=== PATIENT | female | born 1995 | race Caucasian/White ===

== ENCOUNTER → 2018-04-11 13:50 | Outpatient (CLI) | payer OTHER, SELFPAY ==
[2018-04-11 16:13] LABS: Absolute Lymphocyte Count 1.48 X10^3/ul (0.83-4.51); Absolute Neutrophil Count 2.7 X10^3/uL (2.0-7.7); Basophil# 0.03 X10^3/uL; Basophil% 0.6 % (0-1); Eosinophil# 0.35 X10^3/uL; Eosinophils% 6.8 % (0-5); Hematocrit 39.9 % (37-47); Hemoglobin 13.6 g/dl (12.0-15.0); Lymphocyte # 1.48 X10^3/ul (4.0); Lymphocyte % 28.7 % (19-41); Mean Corp Hgb Conc 34.1 g/gl (32-36); Mean Corpuscular Hgb 31.3 pg (27.0-32.0); Mean Corpuscular Volume 91.9 fL (81-99); Mean Platelet Vol. 11.9 fl (6.2-12.0); Monocyte# 0.57 X10^3/uL; Neutrophil # 2.72 X10^3/uL (2.7-7.7); Neutrophil % 52.7 % (47-70); Platelet Count 251 K/mm3 (150-450); RBC Distribution Width CV 12.6 % (11.6-14.6); RBC Distribution Width SD 40.9 fl (35.1-43.9); Red Blood Count 4.34 M/mm3 (4.2-5.4); White Blood Count 5.2 K/mm3 (4.4-11.0)
[2018-04-11 16:23] LABS: POSITIVE COUNT NO; POSITIVE DIFFERENTIAL NO; POSITIVE MORPHOLOGY NO
[2018-04-11 16:30] LABS: ALB/GLOB Ratio 1.2 RATIO (0.9-2.4); AST(SGOT) 73 U/L (15-37); Alanine Aminotransfer ALT/SGPT 133 U/L (13-56); Albumin, Serum 3.8 g/dL (3.2-5.0); Alkaline Phosphatase 79 U/L (45-117); Anion Gap 11 (5-15); BUN 12 mg/dL (7-18); BUN/Creat Ratio 15.2 RATIO (10-20); Calcium,Total 8.4 mg/dL (8.5-10.1); Chloride 103 mmol/L (98-107); Creatinine, Serum 0.79 mg/dL (0.55-1.02); EST Glomerular Filtration Rate 96 mL/min (>60); Est Glom Filt Rate - Afr Amer 116 mL/min (>60); Globulin 3.2 g/dL (2.2-4.2); Glucose 70 mg/dL (74-106); Potassium 3.8 mmol/L (3.5-5.1); Sodium Level 141 mmol/L (136-145)
== END ==
PROVIDERS: Visit Provider Family Medicine
DX: Z01.818 Encounter for other preprocedural examination (principal)
CPT/HCPCS: 36415; 80053; 85025

== ENCOUNTER 2018-04-29 09:58 | Day surgery (SDC) | payer OTHER, SELFPAY ==
[2018-04-29 10:19] LABS: Internal QC Validated? YES +Cl - CLEAR BKGD
[2018-04-29 10:22] LABS: Pregnancy, Urine Negative Negative
[2018-04-29 10:26] VITALS: BP 95/50; PULSE 77; TEMP 37; O2SAT 100; BMI 20.3
--- NOTE | 2018-04-29 11:30 | BUN_PTH ---
PATIENT: JAYSON SARGENT LOC: [facility] [place] U#:[id number] AGE/SX: 22/F ROOM: RE04/29/[address]: Dr. Haider Charlton DPM : 1995 BED: DIS: 04/29/2018 SPEC #: [id number] RECD: 04/29/18 15:44 STATUS: MATEUSZ REJatinder #: [id number] GRAYSON: 04/29/18 11:[address]: Haider Charlton DEPT: SURGICAL PATHOLOGY RECD BY: Bo Le ENTERED: 05/02/18 08:45 SP TYPE: DENA MATTHEWS DR: Janet Ruiz, ENMANUEL Tissues: Bone of foot, NOS Procedures: Decalcification bone/plaque Surgery Specimen Level III HEADER OPERATION: First metatarsal cuneiform Lapidus bunionectomy, foot PRE-OP DIAGNOSIS: Hallus valgus TISSUE SUBMITTED: Bone from bunion MICROSCOPIC DIAGNOSIS Bone from bunion: A piece of bone with reactive changes, clinically dena. JOAN:shruthi 05/05/18 MICROSCOPIC DESCRIPTION Slides are reviewed. GROSS DESCRIPTION Received in fixative is one container labeled with the patient's name and designated bone from dena. The specimen consists of an irregular piece of bone measuring 2.5 x 1.5 x 0.2 cm. The entire specimen is submitted in one cassette after decalcification. / JOAN:shruthi 05/02/18 TC:5 CPT: 37624, 24978
--- NOTE | 2018-04-29 13:30 | RAD_ITS ---
STUDY: X-RAY - RIGHT FOOT CLINICAL: Female, 22 years old. Intraoperative films of medial surgical fusion.. TECHNIQUE: 3 C-arm view(s) of the foot. 1 minute 22 seconds fluoroscopy time. COMPARISON: None. FINDINGS: These limited field of view images show surgical ankylosis and fixation between the first metatarsal and the medial cuneiform. No gross acute constipation seen. Correlate with procedure note. Electronically Signed: Pablo Damon MD at 16:51 EST , Service support , RAD/Foot min 3 Views
[2018-04-29] MEDS: Bupivacaine 0.5% PF 10 ML VIAL (15:49)
--- NOTE | 2018-04-29 16:03 | RAD_ITS ---
STUDY: X-RAY - RIGHT FOOT CLINICAL: Female, 22 years old. Postop TECHNIQUE: 3 view(s) of the foot. COMPARISON: None. FINDINGS: Exam is limited by overlying splint. Postsurgical changes seen off the medial surgical ankylosis between first metatarsal and the medial cuneiform. Normal talus, calcaneus, and tarsal bones. Except along the medial aspect of the foot and postsurgical changes of the medial cuneiform and first metatarsal, otherwise normal visualized subtalar, talonavicular, calcaneocuboid, tarsal and tarsometatarsal articulations. Normal second-fifth metatarsi. Normal metatarsophalangeal joint of the great toe. Normal tibial and fibular sesamoid bones. Normal interphalangeal joint of the great toe. Normal phalanges of the great toe. Normal second through fifth metatarsophalangeal joints. Normal interphalangeal joints and phalanges of the lesser toes. The soft tissue structures are unremarkable. RAD/Foot min 3 Views IMPRESSION: Postsurgical changes seen off the medial surgical ankylosis between first metatarsal and the medial cuneiform. Electronically Signed: Pablo Damon MD at 16:48 EST , Service support ,
--- NOTE | 2018-04-29 16:05 | DCINST_ITS ---
Discharge Diet: Light diet - advance as tolerated Discharge Activity: May Not Drive Weight Bearing Status: No weight bearing - No weightbearing right foot Keep extremity elevated above heart level: Right Leg - Keep right foot elevated for at least 50 minutes of every hour Call your doctor if your incision/area has: Continuous Slow Oozing, Sudden Increased Bleeding, Foul Smelling Discharge Call your doctor if you observe: Fever of 101 or Higher, Shortness of breath, Chest pain, Increased palpitations (irregular heartbeat), Calf discomfort, Uncontrolled pain Cleanse incision/area with: Do not get Incision Wet, Keep Dressing Clean & Dry Allergies/Adverse Reactions: Allergies Penicillins Allergy (Verified 04/22/18 09:30) Unknown Medications to take at Discharge Cholecalciferol (Vitamin D3) [Vitamin D3] 5,000 unit PO DAILY 04/22/18 L.acidoph,Paracasei, B.lactis [Probiotic] 1 each PO DAILY 04/22/18 Multivitamin [Multiple Vitamins] 1 each PO DAILY 04/22/18 Oxycodone HCl/Acetaminophen [Percocet 5/325] 1 - 2 tab PO Q6H PRN PRN 3 Days #30 tab 04/29/18 The following prescriptions were given: Oxycodone HCl/Acetaminophen [Percocet 5/325] 1 - 2 tab PO Q6H PRN PRN 3 Days #30 tab PRN Reason: Pain Primary Care Physician: Janet Ruiz NP-C [Primary Care Provider] - Test Results: Test results from this visit will be discussed in further detail at your follow- up appointment, if applicable. Please Follow Up With: Haider Charlton DPM When: within 1 week, sooner if needed
[2018-04-29 16:07] VITALS: BP 101/68; BP 95/50; PULSE 67; RESP 16; TEMP 36.7; O2SAT 100
--- NOTE | 2018-04-29 16:07 | OP.PCM_ITS ---
Report of Operation Date of Procedure: 04/29/18 Pre-Operative Diagnosis: Hallux valgus, right foot Post-Operative Diagnosis: Same Surgery/Procedure Performed:: 1st metatarsal cuneiform lapidus arthrodesis bunionectomy ultrasound technologist sonographer: yes - Dr. Menezes ultrasound technologist sonographer: yes - Dr. Amaral Type of Anesthesia:: General Specimen's removed: Right foot bunion (from 1st metatarsal head) sent to pathology Estimated Blood Loss (mL): 10mL Description of Procedure: Indications: This is a 22 year old female with history of significant chronic right hallux valgus bunion pain despite conservative care. She is very active, and foot has been very painful for many years, only getting worse. Given the continued symptoms despite nonsurgical management she elected to under go surgical intervention - 1st metatarsal cuneiform lapidus arthrodesis bunionectomy. This was discussed with her in great detail, reviewed the procedures, as well as the rationale of the procedures with her in great detail. We discussed and reviewed the possible benefits vs risks/potential complications. The estimated healing/recovery time and protocol were reviewed with her in detail. Reviewed the goals and the expectations. She expressed understanding and agreement and elected to proceed forward with surgical intervention as noted above. The consent forms were reviewed with her and she freely signed them. All of her questions were answered. No guarantees were given or implied. She was cleared from medical standpoint to proceed with surgery. Operative Procedure: The patient was brought back into the operating room and was placed on the operating table in the supine position. Patient was carefully secured to the operating room table with a safety belt around her waist. A time out was performed and the patient was properly identified and the surgical plan was confirmed. The patient received IV antibiotic prophylaxis. The patient received general anesthesia per the anesthesiologist. A well padded pneumatic tourniquet was applied around her right ankle thigh. The right foot was scrubbed, prepped, and draped in the usual aseptic fashion. Also of note the patient received a right lower extremity popliteal block per the anesthesia service in the pre operative holding area. Attention was directed to the right foot, there was noted to be hallux valgus bunion w/ instability of the 1st ray. The right foot was elevated for 3 minutes and the right ankle pneumatic tourniquet was inflated to 250mmHg. A linear longitudinal skin incision was medially along the medial 1st metatarsal cuneiform joint as well as overlying the 1st metatarsal phalangeal joint. This was done using a 15 blade. Careful dissection was completed down to the capsule of the 1st metatarsal cuneiform joint, and it was incised using a 15 blade and partially reflected exposing the joint surfaces. All cartilage from the joint surfaces (posterior aspect of the base of the 1st metatarsal and the anterior aspect of the medial cuneiform) were debrided away and was removed down to bleeding bone. This was done with a powered rasp as well as manually with a curette, being sure not to cause osteonecrosis. The site was flushed out with copious amounts of normal saline solution. The surfaces were fenestrated using a powered drill as well as with an osteotome to aid fusion. The 1st metatarsal head was reduced into normal position. The site was fixated use rigid open reduction internal fixation, using 1 Arthrex plantar plate, using a total of 4 locking screws and 1 nonlocking compression screws. The compression screw was placed across the fusion site. There was good compression and bone to bone contract with the prepped fusion site, in good alignment. The fusion site was r igid and very stable. This was checked and confirmed with intraoperative fluoroscopy. There was noted to be a residual medial eminence to the 1st metatarsal head. Careful dissection was completed down to the 1st metatarsal phalangeal joint capsule and it was incised, it was partially reflected. The medial eminence of noted to have scar tissue around it, and there was noted synovitis in the 1st me tatarsal phalangeal joint itself. The site was flushed out with copious amounts of normal saline solution, and the medial eminence was resected using a powered sagittal saw, the bone was sent to pathology. There was redundant capsule at the site was a medial capsulorraphy was completed, debulking the medial capsule and tightening it how it is suppose to be. This was done with 3-0 Vicryl. There was smooth gliding range of motion of the 1st metatarsal phalangeal joint. There was excellent alignment. The surgical site was flushed out with copious amounts of normal saline solution. Tissues were healthy and viable at this time. The subcutaneous tissue layers were reapproximated using 3-0 Vicryl and the skin was reapproximated using 4-0 Monocryl. 7 mL of 0.5% Bupivacaine plain was given as a lock block around the surgical site for further pain control. The pneumatic tourniquet was deflated at 90 minutes, there was immediate return of warmth and perfusion to the foot and to all toes on the foot with normal temperature gradient and CFT < 2 seconds to all toes once the tourniquet was deflated. A dressing was applied which consisted of betadine soaked adaptic, 4x4 gauze, kerlix, rashaad bandage, and a well padded below the knee posterior splint secured with rashaad bandages and with the heel offloaded. Of note, all vital structures including all vital neurovascular and tendon structures were properly identified, protected, and retracted as necessary throughout the above operative procedures. The patient tolerated the above operative procedures well at the anesthesia well with no complication. The patient was transported from the operating room to the recovery room with vital signs stable and in good condition. Post operative orders were placed. Post operative instructions were reviewed with her and her family who was with her. No weightbearing right foot foot, keep right foot elevated for at least 50 minutes of every hour, keep dressing and splint clean, dry and intact. Post operative xrays were obtained in the recovery room (DP, Oblique, and lateral foot) - there was again noted to be 1st metatarsal cuneiform arthrodesis bunionectomy with joint surfaces in good alignment and good bone to bone contract with intact hardware; no acute problems or complications seen. Patient was prescribed Percocet for pain control, and levofloxacin 500mg PO once a day for 3 days to help prevent infection. Patient to follow up with me in office within 1 week, sooner if needed. Grafts/Implants Used: 1 Arthrex plantar plate and scres - Complications None
[2018-04-29 16:15] VITALS: BP 95/50; BP 96/59; PULSE 62; RESP 16; O2SAT 100
[2018-04-29 16:30] VITALS: BP 100/71; BP 95/50; PULSE 56; RESP 16; O2SAT 100
[2018-04-29 16:40] VITALS: BP 100/57; BP 95/50; PULSE 49; RESP 16; TEMP 36.5; O2SAT 100
== END 2018-04-29 17:40 | disposition home or self-care (01) ==
LOC: SDC 10:01 → AC 10:02
PROVIDERS: Anesthesiology; Family Provider Registered Nurse; PCP Registered Nurse; Referring Provider Podiatrist; Visit Provider Podiatrist
PROC: (CPT 28292; principal; 2018-04-29 11:15)
DX: M20.11 Hallux valgus (acquired), right foot (principal); F41.9 Anxiety disorder, unspecified
CPT/HCPCS: 28297; 73630; 76000; 81025; 88304; 88311; C1713; J7120; J2405

== ENCOUNTER → 2018-07-21 14:04 | Outpatient (CLI) | payer OTHER, SELFPAY ==
[2018-07-27 12:23] LABS: HPV Reflexed? NOT INDICATED
== END ==
PROVIDERS: Visit Provider Obstetrics & Gynecology
DX: Z12.4 Encounter for screening for malignant neoplasm of cervix (principal)
CPT/HCPCS: 88175; G0145

== ENCOUNTER 2018-08-11 17:00 | Outpatient (RCR) | payer OTHER, SELFPAY ==
--- NOTE | 2018-07-13 15:36 | HP.PTEVAL_ITS ---
Patient's Visit Information JAYSON SARGENT is a 22 year old F referred to Physical Therapy by Haider Charlton DPM with a diagnosis of R foot bunionectomy and 1st ray arthrodesis. Date of Evaluation: 07/13/18 Physical Therapist: Jhonny Krause PT, ATC - Visit Plan Frequency: 2-3x /Week Duration: 4-6 Weeks Plan: wean out of boot. R foot and ankle stretching and strengthening, balance and proprio, bike, and HEP - Subjective Findings: DOS: 04/29/18. Pt reports she had a lot of pain prior to having this surgery. Pt had a bunionectomy and 1st metatarsal arthrodesis performed on her R foot. Pt reports she is feeling much better now since having the surgery. Pt notes she was in severe pain and had significant deformity prior to her surgery. 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 No tingling or numbness in R LE. No sleep difficulty at this time secondary to pain. Pt has been weaning out of boot for the past month, but developed a stress fracure on the 3rd metatarsal. Pt reports she has no pain while she is in the boot, but still has pain if she walks in her shoe. 0/10 pain at rest, 8/10 while walking in her shoe - Pain R foot Pain Intensity (Out of 10): 0 Pain Intensity Range: 8 - Objective Neuro: B LE sensation is WNL to light touch. B achilles reflex= 2/3. ROM: R ankle DF= 15, PF= 80, Inv= 53, Ever= 10: R ankle DF= 15, PF= 75, inv= 40, ever= 15. MMT: L ankle 5/5 throughout. R ankle 4+/5. Observation: Incisions healed well. No signs of infection. Gait: No sig deviations at this time - Goals Goal 1:: Decrease R foot pain x 50% to aid with walking Goal Time Frame: 4-6 Weeks Goal 2:: Increase R foot strength to 5/5 to aid with return to exercise Goal Time Frame: 4-6 Weeks Goal 3:: I with HEP Goal Time Frame: 4-6 Weeks - Rehabilitation Potential Physical Therapy Diagnosis: Pt has R foot pain, weakness, and limitations with gait secondary to R foot surgery Rehabilitation Potential: Good - Anticipated Interventions Patient/Client Instruction: Educate patient on: Condition, Plan of Care For the Purpose of:: To decrease pain, To increase ROM, To improve muscle performance and motor function Therapeutic Exercise to Include: Strength training, Endurance training, Balance training, Flexibilty training, Gait and locomotor training, Active ROM, Dynamic Lumbar Stabilization For the Purpose of:: To decrease pain, To increase ROM, To improve muscle performance and motor function Cryotherapy (ice pack, ice massage): Yes For the Purpose of:: To decrease pain Thank you for the opportunity to evaluate your patient. For Medicare and Medicare HMO plans, please review the plan of care and approve it. It will need to be FAXED BACK to us at [phone] for Medicare purposes. For Medicare only, by signing this I certify the plan of care. Please let me know if there are questions or concerns regarding this plan of care. Physician Signature: Date:
--- NOTE | 2018-08-11 17:36 | HP.PTDCSUM ---
HP - PT D/C Summary It has been my pleasure to treat JAYSON SARGENT under orders from Haider Charlton DPM, for the diagnosis of R foot bunionectomy and 1st ray arthrodesis for a total of 9 visit(s). Discharge Date: Please see the following information for a summary of their discharge status. - Subjective Subjective: No pain this date - Pain R foot Pain Intensity (Out of 10): 0 - Overall Improvement % Improvement: 75 - Objective Objective/Function: R ankle MMT: 5/5. 0/10 pain. I with HEP. Rx goals achieved - Goals Goal 1:: Decrease R foot pain x 50% to aid with walking Goal Progress: Goal Met Goal 2:: Increase R foot strength to 5/5 to aid with return to exercise Goal Progress: Goal Met Goal 3:: I with HEP Goal Progress: Goal Met - Plan Plan: discharge - D/C Information If there are questions or concerns regarding this patient's physical therapy, please feel free to call me at [phone]. Thank you for the referral of this patient. Sincerely, Jhonny Krause, PT, ATC
== END 2018-08-11 19:00 | disposition home or self-care (01) ==
LOC: PT 17:00
PROVIDERS: Family Provider Registered Nurse; PCP Registered Nurse; Referring Provider Podiatrist; Visit Provider Podiatrist
DX: Z98.890 Other specified postprocedural states (principal)
CPT/HCPCS: 97110; 97161; 97530

== ENCOUNTER → 2019-08-01 | Outpatient (CLI) | payer OTHER, SELFPAY | END | disposition home or self-care (01) | PROVIDERS: Visit Provider Obstetrics & Gynecology | DX: Z12.4 Encounter for screening for malignant neoplasm of cervix (principal) ==

== ENCOUNTER → 2024-05-22 | Outpatient (CLI) | payer OTHER, SELFPAY ==
[2024-05-22 07:46] LABS: Mean Corp Hgb Conc 33.3 g/dL (32-36); Mean Corpuscular Hgb 29.5 pg (27.0-32.0); Mean Corpuscular Volume 88.6 fL (81-99); Mean Platelet Vol. 11.7 fl (6.2-12.0); Platelet Count 256 K/mm3 (150-450); RBC Distribution Width CV 12.9 % (11.6-14.6); RBC Distribution Width SD 42.2 fl (35.1-43.9); Red Blood Count 4.74 M/mm3 (4.2-5.4); White Blood Count 4.6 K/mm3 (4.4-11.0)
[2024-05-22 07:53] LABS: Bedside Glucose 94 mg/dL (74-106)
[2024-05-22 08:11] LABS: T3 Total - Triiodothyronine 1.07 ng/mL (0.6-1.81)
[2024-05-22 08:11] LABS: Glucose 75GTT - Fasting 106 mg/dL (70-99)
[2024-05-22 08:13] LABS: Glucose 75GTT - 30 minutes 133 mg/dL (100-160)
[2024-05-22 08:15] LABS: ALB/GLOB Ratio 1.1 RATIO (0.9-2.4); AST(SGOT) 16 U/L (15-37); Alanine Aminotransfer ALT/SGPT 28 U/L (13-56); Albumin, Serum 3.9 g/dL (3.2-5.0); Alkaline Phosphatase 47 U/L (45-117); Anion Gap 5 (5-15); BUN 14 mg/dL (7-18); BUN/Creat Ratio 16.4 RATIO (10-20); Calcium,Total 8.5 mg/dL (8.5-10.1); Chloride 108 mmol/L (98-107); Creatinine, Serum 0.85 mg/dL (0.55-1.02); EST Glomerular Filtration Rate 84 mL/min (>60); Est Glom Filt Rate - Afr Amer 101 mL/min (>60); Free T3 3.1 pg/mL (2.18-3.98); Globulin 3.5 g/dL (2.2-4.2); Glucose 94 mg/dL (74-106); Potassium 3.9 mmol/L (3.5-5.1); Protein, Total 7.4 g/dL (6.4-8.2); Sodium Level 139 mmol/L (136-145); T4 Free Direct 0.92 ng/dL (0.76-1.46)
[2024-05-22 08:57] LABS: Glucose 75GTT - 60 minutes 89 mg/dL (100-160)
[2024-05-22 10:06] LABS: Glucose 75GTT - 120 minutes 90 mg/dL (70-140)
[2024-05-23 04:06] LABS: PROLACTIN 7.2 ng/mL (4.8-33.4)
[2024-05-23 15:07] LABS: PROLACTIN 14.2 ng/mL (4.8-33.4); Thyroglobulin Antibody < 1.0 IU/mL (0.0-0.9); Thyroid Peroxidase AB 13 IU/mL (0-34)
[2024-05-23 16:08] LABS: INSULIN 120 MIN 21.1 uIU/mL (0.0-145.4); INSULIN 30 MIN 45.2 uIU/mL (0.0-121.9); INSULIN 60 MIN 41.7 uIU/mL (0.0-163.5)
== END | disposition home or self-care (01) ==
PROVIDERS: PCP Registered Nurse; Referring Provider Obstetrics & Gynecology; Visit Provider Obstetrics & Gynecology
DX: Z13.1 Encounter for screening for diabetes mellitus (principal); Z13.21 Encounter for screening for nutritional disorder; E28.9 Ovarian dysfunction, unspecified; N96 Recurrent pregnancy loss; R73.09 Other abnormal glucose; E07.9 Disorder of thyroid, unspecified
CPT/HCPCS: 36415; 80053; 82951; 82952; 82962; 83525; 84146; 84439; 84443; 84480; 84481; 85027; 86376; 86800

== ENCOUNTER → 2024-06-01 | Outpatient (CLI) | payer BC, SELFPAY ==
[2024-06-01 08:30] LABS: Estradiol 30.7 pg/mL; Follicle Stimulating Hormone 5.1 mIU/mL
[2024-06-02 03:07] LABS: CRP, High Sensitivity 0.63 mg/L (0.00-3.00)
[2024-06-03 15:07] LABS: Anti-Cardiolipin Ab, IgA, Qn < 9 APL U/mL (0-11); Anti-Cardiolipin Ab, IgG, Qn < 9 GPL U/mL (0-14); Anti-Cardiolipin Ab, IgM, Qn < 9 MPL U/mL (0-12); Dilute Prothrombin Time (dPT) 33.5 sec (0.0-47.6); Dilute Russell Viper Venom 35.9 sec (0.0-47.0); Interpretation Comment: (.); PTT-LA 38.2 sec (0.0-43.5); dPT Confirm Ratio 0.96 Ratio (0.00-1.34)
[2024-06-05 15:07] LABS: Androstenedione 108 ng/dL (41-262); Testosterone, % Free 2.74 % (0.50-2.80); Testosterone, Total 22 ng/dL (13-71)
== END | disposition home or self-care (01) ==
PROVIDERS: Obstetrics & Gynecology Gynecology; PCP Registered Nurse; Referring Provider Obstetrics & Gynecology; Visit Provider Obstetrics & Gynecology
DX: N96 Recurrent pregnancy loss (principal)
CPT/HCPCS: 36415; 82157; 82533; 82627; 82670; 83001; 84402; 84403; 86141; 86147; 82626

== ENCOUNTER → 2024-06-23 | Outpatient (CLI) | payer BC, SELFPAY ==
[2024-06-23 08:31] LABS: hCG Titer Quant., Serum 30 mIU/mL (1-3)
== END | disposition home or self-care (01) ==
LOC: LAB 06:57
PROVIDERS: PCP Registered Nurse; Referring Provider Obstetrics & Gynecology; Visit Provider Obstetrics & Gynecology
DX: N96 Recurrent pregnancy loss (principal); N91.1 Secondary amenorrhea
CPT/HCPCS: 36415; 84702

== ENCOUNTER → 2024-06-26 | Outpatient (CLI) | payer BC, SELFPAY ==
[2024-06-26 08:58] LABS: hCG Titer Quant., Serum 135 mIU/mL (1-3)
[2024-06-26 09:50] LABS: Estradiol 173.5 pg/mL
[2024-06-26 10:19] LABS: Vitamin D,25 Hydroxy 50.4 ng/mL
[2024-06-27 04:07] LABS: PROGESTERONE 22.2 ng/mL (.)
[2024-06-30 18:07] LABS: Testosterone, % Free 3.97 % (0.50-2.80); Testosterone, Free 1.19 ng/dL (0.10-0.85); Testosterone, Total 30 ng/dL (13-71)
== END | disposition home or self-care (01) ==
LOC: LAB 07:08
PROVIDERS: PCP Registered Nurse; Referring Provider Obstetrics & Gynecology; Visit Provider Obstetrics & Gynecology
DX: E28.9 Ovarian dysfunction, unspecified (principal); N96 Recurrent pregnancy loss; Z13.21 Encounter for screening for nutritional disorder
CPT/HCPCS: 36415; 82306; 82627; 82670; 84144; 84270; 84402; 84403; 84702; 82626

== ENCOUNTER → 2024-06-28 | Outpatient (CLI) | payer BC, SELFPAY ==
[2024-06-28 08:16] LABS: hCG Titer Quant., Serum 285 mIU/mL (1-3)
== END | disposition home or self-care (01) ==
LOC: LAB 07:17
PROVIDERS: PCP Registered Nurse; Referring Provider Obstetrics & Gynecology; Visit Provider Obstetrics & Gynecology
DX: N96 Recurrent pregnancy loss (principal); N91.1 Secondary amenorrhea
CPT/HCPCS: 36415; 84702

== ENCOUNTER → 2024-07-03 | Outpatient (CLI) | payer BC, SELFPAY ==
[2024-07-03 08:51] LABS: Estradiol 206.4 pg/mL
[2024-07-03 09:08] LABS: hCG Titer Quant., Serum 1874 mIU/mL (1-3)
[2024-07-04 04:06] LABS: PROGESTERONE 17.3 ng/mL (.)
== END | disposition home or self-care (01) ==
LOC: LAB 07:27
PROVIDERS: PCP Registered Nurse; Referring Provider Obstetrics & Gynecology; Visit Provider Obstetrics & Gynecology
DX: N96 Recurrent pregnancy loss (principal); N91.1 Secondary amenorrhea
CPT/HCPCS: 36415; 82670; 84144; 84702

== ENCOUNTER → 2024-07-11 | Outpatient (CLI) | payer BC, SELFPAY ==
[2024-07-11 08:49] LABS: Estradiol 311.3 pg/mL
[2024-07-13 04:07] LABS: PROGESTERONE 20.1 ng/mL (.)
== END | disposition home or self-care (01) ==
LOC: LAB 07:48
PROVIDERS: PCP Registered Nurse; Referring Provider Obstetrics & Gynecology; Visit Provider Obstetrics & Gynecology
DX: E28.9 Ovarian dysfunction, unspecified (principal)
CPT/HCPCS: 36415; 82670; 84144

== ENCOUNTER → 2024-07-27 | Outpatient (CLI) | payer BC, SELFPAY ==
[2024-07-27 13:06] LABS: Hematocrit 39.1 % (37-47); Hemoglobin 13.4 g/dL (12.0-15.0); Mean Corp Hgb Conc 34.3 g/dL (32-36); Mean Corpuscular Hgb 29.8 pg (27.0-32.0); Mean Corpuscular Volume 87.1 fL (81-99); Mean Platelet Vol. 11.7 fl (6.2-12.0); Platelet Count 285 K/mm3 (150-450); RBC Distribution Width SD 41.3 fl (35.1-43.9); Red Blood Count 4.49 M/mm3 (4.2-5.4); White Blood Count 10.8 K/mm3 (4.4-11.0)
[2024-07-27 13:52] LABS: HIV Nonreactive (Nonreactive); Hepatitis B Surface Antibody REAC; Hepatitis B Surface Antigen Nonreactive (Nonreactive); Hepatitis C Antibody Nonreactive (Nonreactive); Syphilis Antibodies Nonreactive (Nonreactive)
[2024-07-27 13:53] LABS: Rubella IgG REAC (Nonreactive); Vitamin B12 942 pg/mL (180-914); Vitamin D,25 Hydroxy 45.3 ng/mL (30-100)
== END | disposition home or self-care (01) ==
PROVIDERS: PCP Registered Nurse; Referring Provider Obstetrics & Gynecology; Visit Provider Obstetrics & Gynecology
DX: Z34.81 Encounter for supervision of other normal pregnancy, first trimester (principal); E55.9 Vitamin D deficiency, unspecified
CPT/HCPCS: 36415; 82306; 82607; 85027; 86703; 86706; 86762; 86780; 86803; 86850; 86900; 86901; 87340

== ENCOUNTER 2024-08-08 08:43 | Outpatient (RCR) | payer BC, SELFPAY ==
[2024-08-09 08:09] LABS: PROGESTERONE 30.4 ng/mL (.)
== END 2024-08-08 18:00 | disposition home or self-care (01) ==
LOC: LAB 08:43
PROVIDERS: PCP Registered Nurse; Referring Provider Obstetrics & Gynecology; Visit Provider Obstetrics & Gynecology
DX: E28.9 Ovarian dysfunction, unspecified (principal); Z51.81 Encounter for therapeutic drug level monitoring
CPT/HCPCS: 36415; 84144

== ENCOUNTER 2024-09-19 07:35 | Outpatient (RCR) | payer BC, SELFPAY ==
[2024-08-23 04:07] LABS: PROGESTERONE 30.5 ng/mL (.)
[2024-09-10 07:07] LABS: PROGESTERONE 29.7 ng/mL (.)
[2024-09-20 04:07] LABS: PROGESTERONE 29.3 ng/mL (.)
== END 2024-09-20 18:00 | disposition home or self-care (01) ==
LOC: LAB 07:35
PROVIDERS: PCP Registered Nurse; Referring Provider Obstetrics & Gynecology; Visit Provider Obstetrics & Gynecology
DX: E28.9 Ovarian dysfunction, unspecified (principal); Z51.81 Encounter for therapeutic drug level monitoring
CPT/HCPCS: 36415; 84144

== ENCOUNTER 2024-10-04 07:13 | Outpatient (RCR) | payer BC, SELFPAY ==
[2024-10-05 04:07] LABS: PROGESTERONE 26.1 ng/mL (.)
== END 2024-10-04 18:00 | disposition home or self-care (01) ==
LOC: LAB 07:13
PROVIDERS: PCP Registered Nurse; Referring Provider Obstetrics & Gynecology; Visit Provider Obstetrics & Gynecology
DX: E28.9 Ovarian dysfunction, unspecified (principal); Z51.81 Encounter for therapeutic drug level monitoring
CPT/HCPCS: 36415; 84144